=== PATIENT | female | born 1960 | race Caucasian/White ===

== ENCOUNTER → 2017-12-17 | Outpatient (CLI) | payer OTHER | END | disposition home or self-care (01) | LOC: CFH 08:15 | DX: N63.11 Unspecified lump in the right breast, upper outer quadrant (principal); Z80.3 Family history of malignant neoplasm of breast | CPT/HCPCS: 77066 ==

== ENCOUNTER → 2017-12-22 | Outpatient (CLI) | payer OTHER ==
[~2017-12-22] MED LIST: LIDOCAINE 1%-EPI 1:100K, 20ML ONE; SODIUM BICARBONATE 4.0%, 5ML ONE
== END | disposition home or self-care (01) ==
LOC: CFH 09:27
DX: N63.11 Unspecified lump in the right breast, upper outer quadrant (principal); N63.14 Unspecified lump in the right breast, lower inner quadrant
CPT/HCPCS: 19083; 77065; 88305; J3490

== ENCOUNTER → 2018-01-27 | Outpatient (CLI) | payer OTHER ==
[~2018-01-27] MED LIST changes: +CHOL10002 PO; -LIDOCAINE 1%-EPI 1:100K, 20ML ONE; +LOSA50TA6 PO; -SODIUM BICARBONATE 4.0%, 5ML ONE; +TYLENOL PM PO
== END | disposition home or self-care (01) ==
LOC: STAR 13:50
PROVIDERS: ATTEND Surgery
DX: Z01.812 Encounter for preprocedural laboratory examination (principal); C50.411 Malignant neoplasm of upper-outer quadrant of right female breast
CPT/HCPCS: 93005

== ENCOUNTER 2018-02-01 12:15 | Day surgery (SDC) | payer OTHER ==
[~2018-02-01] VITALS: Ht 167.6 cm; Wt 83.2 kg
[2018-02-01] MEDS ORDERED: LACTATED RINGERS 1,000 ML IV SCH ×2 (12:45→20:27)
[2018-02-01] MEDS ORDERED: SCOPOLAMINE PATCH, 1.5MG PATCH.TD72 TD ONE (13:00)
[2018-02-01] MEDS ORDERED: ONDANSETRON ODT 8 MG PO ONE (13:00)
[2018-02-01] MEDS ORDERED: ACETAMINOPHEN 500 MG TABLET PO ONE (13:00)
[2018-02-01] MEDS ORDERED: GABAPENTIN 300 MG CAPSULE PO ONE (13:00)
[2018-02-01 13:37] VITALS: BP 155/88
[2018-02-01] MEDS ORDERED: BUPIVACAINE/PF-EPI 0.5% 1:200K ONE (14:12)
[2018-02-01] MEDS ORDERED: GENTAMICIN 80 MG/2 ML ONE (14:12)
[2018-02-01] MEDS ORDERED: ISOSULFAN BLUE 10 MG/ML, 5ML IV ONE (14:12)
[2018-02-01] MEDS ORDERED: CEFAZOLIN 1,000 MG ONE ×3 (14:12→15:44)
[2018-02-01] MEDS ORDERED: BACITRACIN 50,000 UNIT ONE (14:13)
[2018-02-01] MEDS ORDERED: PROMETHAZINE 25 MG/ML, 1ML IV PRN (15:00)
[2018-02-01] MEDS ORDERED: OXYcodone 5 MG/5 ML ORAL.SOL UDC PO PRN (15:00)
[2018-02-01] MEDS ORDERED: FENTANYL PF 100 MCG/2ML IV PRN (15:00)
[2018-02-01] MEDS ORDERED: ONDANSETRON ODT 8 MG PO PRN (15:00)
[2018-02-01] MEDS ORDERED: PROMETHAZINE 25 MG SUPP PR PRN (15:00)
[2018-02-01] MEDS ORDERED: ONDANSETRON 2MG/ML, 2ML IV PRN (15:00)
[2018-02-01] MEDS ORDERED: LABETALOL 5MG/ML, 20ML IV PRN (15:00)
[2018-02-01] MEDS ORDERED: MORPHINE SULFATE 4 MG/ML, 1ML IVPush PRN (15:00)
[2018-02-01] MEDS ORDERED: HYDROmorphone 1 MG/ML, 1ML IV PRN (15:00)
[2018-02-01] MEDS ORDERED: MEPERIDINE/PF 25MG/0.5ML IVPush PRN (15:00)
[2018-02-01] MEDS ORDERED: PROMETHAZINE 12.5 MG SUPP PR PRN (15:00)
[2018-02-01] MEDS ORDERED: hydrALAzine 20 MG/ML, 1ML IV PRN (15:00)
[2018-02-01] MEDS ORDERED: MIDAZOLAM 1 MG/ML, 2ML ONE (15:43)
[2018-02-01] MEDS ORDERED: FENTANYL PF 250 MCG/5ML ONE (15:43)
[2018-02-01] MEDS ORDERED: WATER-INJECTION,STERILE 10 ML IV ONE (15:44)
[2018-02-01] MEDS ORDERED: NEOSTIGMINE 1 MG/ML, 10ML ONE (15:46)
[2018-02-01] MEDS ORDERED: GLYCOPYRROLATE 0.4 MG/2 ML, 2ML ONE (15:46)
[2018-02-01] MEDS ORDERED: PROPOFOL 10 MG/ML, 20ML ONE (15:46)
[2018-02-01] MEDS ORDERED: ROCURONIUM 10 MG/ML,10ML ONE (16:17)
[2018-02-01] MEDS ORDERED: DEXAMETHASONE 4 MG/ML, 1ML ONE ×3 (16:33)
[2018-02-01] MEDS ORDERED: OXYcodone 5 MG/5 ML ORAL.SOL UDC ONE (18:23)
[2018-02-01] MEDS ORDERED: morphine SULFATE 10 MG/ML, 1ML IVPush PRN (20:30)
[2018-02-01] MEDS ORDERED: ONDANSETRON 2MG/ML, 2ML IVPush PRN (20:30)
== END 2018-02-01 21:05 | disposition home or self-care (01) ==
LOC: OUT 12:15 → 4NOR 19:37 → OUT 20:27
PROVIDERS: ATTEND Surgery
DX: C50.911 Malignant neoplasm of unspecified site of right female breast (principal); R59.1 Generalized enlarged lymph nodes; I10 Essential (primary) hypertension; Z72.89 Other problems related to lifestyle; Z91.040 Latex allergy status
CPT/HCPCS: 19301; 38525; 38792; 88307; 88333; A9541; C1729; J0690; J1100; J2250; J2704; J2710; J3010; J7120; Q0162; 88329; 88341; 88342; G0461; J1580

== ENCOUNTER 2018-03-17 11:05 | Day surgery (SDC) | payer OTHER ==
[~2018-03-17] VITALS: Ht 167.6 cm; Wt 83.6 kg
[~2018-03-17 11:05] MED LIST changes: +BUPIVACAINE/PF 0.5% ONE; +ISOSULFAN BLUE 10 MG/ML, 5ML IV ONE
[2018-03-17] MEDS ORDERED: LACTATED RINGERS 1,000 ML IV SCH (11:28)
[2018-03-17] MEDS ORDERED: GABAPENTIN 300 MG CAPSULE PO ONE (11:30)
[2018-03-17] MEDS ORDERED: ACETAMINOPHEN 500 MG TABLET PO ONE (11:30)
[2018-03-17] MEDS ORDERED: ONDANSETRON ODT 8 MG PO ONE (11:30)
[2018-03-17] MEDS ORDERED: SCOPOLAMINE PATCH, 1.5MG PATCH.TD72 TD ONE (11:30)
[2018-03-17 11:44] VITALS: BP 139/86
[2018-03-17] MEDS ORDERED: ACET650S21 PO (11:51)
[2018-03-17] MEDS ORDERED: PLEASE ENTER HEIGHT AND WEIGHT MC SCH (12:00)
[2018-03-17] MEDS ORDERED: BACITRACIN 50,000 UNIT ONE (14:15)
[2018-03-17] MEDS ORDERED: GENTAMICIN 80 MG/2 ML ONE (14:15)
[2018-03-17] MEDS ORDERED: CEFAZOLIN 1,000 MG ONE ×2 (14:15→14:17)
[2018-03-17] MEDS ORDERED: ONDANSETRON 2MG/ML, 2ML ONE (14:17)
[2018-03-17] MEDS ORDERED: DEXAMETHASONE 4 MG/ML, 1ML ONE (14:17)
[2018-03-17] MEDS ORDERED: PROPOFOL 10 MG/ML, 20ML ONE (14:17)
[2018-03-17] MEDS ORDERED: PHENYLEPHRINE 10 MG/ML ONE (14:17)
[2018-03-17] MEDS ORDERED: METOCLOPRAMIDE 5 MG/ML, 2ML ONE (14:17)
[2018-03-17] MEDS ORDERED: EPHEDRINE 50 MG/ML, 1ML ONE (14:17)
[2018-03-17] MEDS ORDERED: FENTANYL PF 100 MCG/2ML ONE ×2 (14:20→16:21)
[2018-03-17] MEDS ORDERED: MIDAZOLAM 1 MG/ML, 2ML ONE (14:20)
[2018-03-17] MEDS ORDERED: BUPIVACAINE/PF-EPI 0.5% 1:200K INFIL ONE (14:50)
[2018-03-17] MEDS ORDERED: MEPERIDINE/PF 100 MG/ML ONE (15:11)
[2018-03-17] MEDS ORDERED: OXYcodone 5 MG/5 ML ORAL.SOL UDC ONE ×2 (16:22→16:45)
[2018-03-17] MEDS ORDERED: FENTANYL PF 100 MCG/2ML IV PRN (16:30)
[2018-03-17] MEDS ORDERED: HYDROmorphone 1 MG/ML, 1ML IV PRN (16:30)
[2018-03-17] MEDS ORDERED: LABETALOL 5MG/ML, 20ML IV PRN (16:30)
[2018-03-17] MEDS ORDERED: MEPERIDINE/PF 25MG/0.5ML IVPush PRN (16:30)
[2018-03-17] MEDS ORDERED: MIDAZOLAM 1 MG/ML, 2ML IV PRN (16:30)
[2018-03-17] MEDS ORDERED: ONDANSETRON 2MG/ML, 2ML IVPush PRN (16:30)
[2018-03-17] MEDS ORDERED: OXYcodone 5 MG/5 ML ORAL.SOL UDC PO PRN (16:30)
== END 2018-03-17 18:42 | disposition home or self-care (01) ==
LOC: OUT 11:05
PROVIDERS: ATTEND Surgery
DX: C50.911 Malignant neoplasm of unspecified site of right female breast (principal); Z98.890 Other specified postprocedural states; Z79.899 Other long term (current) drug therapy; Z72.89 Other problems related to lifestyle; I10 Essential (primary) hypertension; Z91.040 Latex allergy status
CPT/HCPCS: 19303; 19357; 88307; C1729; C1762; J0690; J1100; J1580; J2175; J2250; J2370; J2405; J2704; J2765; J3490; J7120; Q0162; J3010

== ENCOUNTER 2018-05-05 07:05 | Day surgery (SDC) | payer OTHER ==
[~2018-05-05] VITALS: Ht 167.6 cm; Wt 85.8 kg
[~2018-05-05 07:05] MED LIST changes: +ACET650S21 PO; -BUPIVACAINE/PF 0.5% ONE; -ISOSULFAN BLUE 10 MG/ML, 5ML IV ONE; -LOSA50TA6 PO; +LOSA50TA7 PO
[2018-05-05] MEDS ORDERED: LACTATED RINGERS 1,000 ML IV SCH (07:29)
[2018-05-05] MEDS ORDERED: GABAPENTIN 300 MG CAPSULE PO ONE (07:30)
[2018-05-05] MEDS ORDERED: ACETAMINOPHEN 500 MG TABLET PO ONE (07:30)
[2018-05-05] MEDS ORDERED: OxyconTIN ER 10 MG TAB.ER PO ONE (07:30)
[2018-05-05 07:52] VITALS: BP 150/93
[2018-05-05 08:11] LABS: HCG UR SG 1.018 (1.003-1.030); MICROSCOPIC NOT IND
[2018-05-05 08:13] LABS: CULTURE INDICATED? NO
[2018-05-05] MEDS ORDERED: ROCURONIUM 10MG/ML,5ML ONE (08:19)
[2018-05-05] MEDS ORDERED: LIDOCAINE-MPF 2% ,5ML ONE (08:19)
[2018-05-05] MEDS ORDERED: DEXAMETHASONE 4 MG/ML, 1ML ONE (08:19)
[2018-05-05] MEDS ORDERED: PROPOFOL 10 MG/ML, 20ML ONE (08:19)
[2018-05-05] MEDS ORDERED: MIDAZOLAM 1 MG/ML, 2ML ONE (08:19)
[2018-05-05] MEDS ORDERED: GLYCOPYRROLATE 0.2MG/1ML, 5ML ONE (08:19)
[2018-05-05] MEDS ORDERED: FENTANYL PF 250 MCG/5ML ONE (08:19)
[2018-05-05] MEDS ORDERED: FLUORESCEIN SODIUM 500 MG/5 ML ONE (08:35)
[2018-05-05] MEDS ORDERED: BUPIVACAINE/PF-EPI 0.5% 1:200K ONE (08:35)
[2018-05-05] MEDS ORDERED: DIPHENHYDRAMINE 50 MG/ML, 1ML IVPush PRN (09:00)
[2018-05-05] MEDS ORDERED: MIDAZOLAM 1 MG/ML, 2ML IV PRN (09:00)
[2018-05-05] MEDS ORDERED: SCOPOLAMINE PATCH, 1.5MG PATCH.TD72 TD ONE ×2 (09:00→09:03)
[2018-05-05] MEDS ORDERED: ALBUTEROL SULFATE 2.5 MG/3 ML NPPB PRN (09:00)
[2018-05-05] MEDS ORDERED: METOCLOPRAMIDE 5 MG/ML, 2ML IV PRN (09:00)
[2018-05-05] MEDS ORDERED: KETOROLAC 30 MG/1 ML IV PRN (09:00)
[2018-05-05] MEDS ORDERED: MEPERIDINE/PF 25MG/0.5ML IVPush PRN (09:00)
[2018-05-05] MEDS ORDERED: EPHEDRINE 50 MG/ML, 1ML IVPush PRN (09:00)
[2018-05-05] MEDS ORDERED: ONDANSETRON ODT 8 MG PO PRN (09:00)
[2018-05-05] MEDS ORDERED: LABETALOL 5MG/ML, 20ML IV PRN (09:00)
[2018-05-05] MEDS ORDERED: FENTANYL PF 100 MCG/2ML IV PRN (09:00)
[2018-05-05] MEDS ORDERED: HYDROmorphone 1 MG/ML, 1ML IV PRN (09:00)
[2018-05-05] MEDS ORDERED: DEXAMETHASONE 4 MG/ML, 1ML IV PRN (09:00)
[2018-05-05] MEDS ORDERED: HYDROcodone/APAP 7.5-325MG/15ML UDC PO PRN (09:00)
[2018-05-05] MEDS ORDERED: ESTROGENS CONJUGATED VAG CRM 0.625MG/1G, 30GM ONE (10:39)
[2018-05-05] MEDS ORDERED: IBUPROFEN 600 MG TABLET ONE (12:43)
[2018-05-05] MEDS ORDERED: HYDROcodone/APAP 5/325 TABLET PO PRN (13:00)
[2018-05-05] MEDS ORDERED: HYDROmorphone 2 MG/ML, 1ML IVPush PRN (13:00)
[2018-05-05] MEDS ORDERED: IBUPROFEN 600 MG TABLET PO SCH (13:00)
== END 2018-05-05 17:55 | disposition home or self-care (01) ==
LOC: OUT 07:05
PROVIDERS: ATTEND Obstetrics & Gynecology
DX: N93.8 Other specified abnormal uterine and vaginal bleeding (principal); N75.0 Cyst of Bartholin's gland; N85.2 Hypertrophy of uterus; I10 Essential (primary) hypertension; G43.909 Migraine, unspecified, not intractable, without status migrainosus; Z85.3 Personal history of malignant neoplasm of breast; Z98.890 Other specified postprocedural states; Z90.11 Acquired absence of right breast and nipple
CPT/HCPCS: 36415; 56740; 58552; 81003; 81025; 86850; 86900; 88304; 88307; J1100; J2250; J2704; J3010; J3490; J7120

== ENCOUNTER 2018-09-29 05:17 | Day surgery (SDC) | payer OTHER ==
[~2018-09-29] VITALS: Ht 167.6 cm; Wt 84.0 kg
[~2018-09-29 05:17] MED LIST changes: +ANAS1TAB PO; +CALC-534 PO; +CHOL200024 PO; +LOSA50TA14 PO; -LOSA50TA7 PO; +PARO37.52 PO
[2018-09-29] MEDS ORDERED: FENTANYL PF 250 MCG/5ML ONE (05:55)
[2018-09-29] MEDS ORDERED: MIDAZOLAM 1 MG/ML, 2ML ONE (05:55)
[2018-09-29] MEDS ORDERED: LACTATED RINGERS 1,000 ML IV SCH (05:59)
[2018-09-29] MEDS ORDERED: SCOPOLAMINE PATCH, 1.5MG PATCH.TD72 TD ONE (06:00)
[2018-09-29] MEDS ORDERED: GABAPENTIN 300 MG CAPSULE PO ONE (06:00)
[2018-09-29] MEDS ORDERED: ACETAMINOPHEN 500 MG TABLET PO ONE (06:00)
[2018-09-29 06:08] VITALS: BP 154/97
[2018-09-29] MEDS ORDERED: EPINEPHRINE 1 MG/ML, 1ML ONE (06:18)
[2018-09-29] MEDS ORDERED: SODIUM BICARBONATE 1 MEQ/ML, 50ML VIAL ONE (06:19)
[2018-09-29] MEDS ORDERED: LIDOCAINE-MPF 2% ,5ML ONE (06:19)
[2018-09-29] MEDS ORDERED: CEFAZOLIN 1,000 MG ONE ×2 (06:19→07:42)
[2018-09-29] MEDS ORDERED: BUPIVACAINE/PF-EPI 0.5% 1:200K ONE (06:19)
[2018-09-29] MEDS ORDERED: GENTAMICIN 80 MG/2 ML ONE (06:19)
[2018-09-29] MEDS ORDERED: BACITRACIN 50,000 UNIT ONE (06:20)
[2018-09-29] MEDS ORDERED: ONDANSETRON 2MG/ML, 2ML IV PRN (06:30)
[2018-09-29] MEDS ORDERED: FENTANYL PF 100 MCG/2ML IV PRN (06:30)
[2018-09-29] MEDS ORDERED: ONDANSETRON ODT 8 MG PO PRN (06:30)
[2018-09-29] MEDS ORDERED: MORPHINE SULFATE 4 MG/ML, 1ML IVPush PRN (06:30)
[2018-09-29] MEDS ORDERED: PROMETHAZINE 25 MG SUPP PR PRN (06:30)
[2018-09-29] MEDS ORDERED: HYDROmorphone 2 MG/ML, 1ML IVPush PRN (06:30)
[2018-09-29] MEDS ORDERED: PROMETHAZINE 25 MG/ML, 1ML IM PRN ×2 (06:30)
[2018-09-29] MEDS ORDERED: hydrALAzine 20 MG/ML, 1ML IV PRN (06:30)
[2018-09-29] MEDS ORDERED: OXYcodone 5 MG/5 ML ORAL.SOL UDC PO PRN (06:30)
[2018-09-29] MEDS ORDERED: PROMETHAZINE 12.5 MG SUPP PR PRN (06:30)
[2018-09-29] MEDS ORDERED: LABETALOL 5MG/ML, 20ML IV PRN (06:30)
[2018-09-29] MEDS ORDERED: PROMETHAZINE 25 MG/ML, 1ML IV PRN (06:30)
[2018-09-29] MEDS ORDERED: GLYCOPYRROLATE 0.2MG/1ML, 5ML ONE (07:42)
[2018-09-29] MEDS ORDERED: PROPOFOL 10 MG/ML, 20ML ONE (07:42)
[2018-09-29] MEDS ORDERED: NEOSTIGMINE 1 MG/ML, 10ML ONE (07:42)
[2018-09-29] MEDS ORDERED: ROCURONIUM 10MG/ML,5ML ONE (07:42)
[2018-09-29] MEDS ORDERED: ONDANSETRON 2MG/ML, 2ML ONE (07:42)
[2018-09-29] MEDS ORDERED: OXYcodone 5 MG/5 ML ORAL.SOL UDC ONE ×2 (08:24→08:52)
[2018-09-29] MEDS ORDERED: MEPERIDINE/PF 25MG/ML,1ML ONE (08:24)
[2018-09-29] MEDS: MEPERIDINE/PF 25MG/0.5ML IVPush PRN ×2 (08:26→08:54)
[2018-09-29] MEDS ORDERED: PHENYLEPHRINE 10 MG/ML ONE (10:28)
[2018-09-29] MEDS ORDERED: DEXAMETHASONE 4 MG/ML, 1ML ONE (10:29)
== END 2018-09-29 11:45 | disposition home or self-care (01) ==
LOC: OUT 05:17
PROVIDERS: ATTEND Plastic Surgery
DX: N65.1 Disproportion of reconstructed breast (principal); I10 Essential (primary) hypertension; Z85.3 Personal history of malignant neoplasm of breast; Z98.890 Other specified postprocedural states; Z72.89 Other problems related to lifestyle; Z91.040 Latex allergy status; Z79.899 Other long term (current) drug therapy
CPT/HCPCS: 11970; 19366; 20926; C1789; J0171; J0690; J1100; J1580; J2175; J2250; J2370; J2405; J2704; J2710; J3010; J3490; J7120

== ENCOUNTER → 2019-01-16 | Outpatient (CLI) | payer OTHER | END | disposition home or self-care (01) | LOC: CFH 10:36 | PROVIDERS: ATTEND Internal Medicine Hematology & Oncology | DX: R92.2 Inconclusive mammogram (principal); Z85.3 Personal history of malignant neoplasm of breast; Z90.11 Acquired absence of right breast and nipple | CPT/HCPCS: 76641 ==

== ENCOUNTER → 2019-05-12 | Outpatient (CLI) | payer OTHER ==
[2019-05-12 10:17] LABS: BASOPHILS # (AUTO) 0.06 x10^3/uL (0-0.1); BASOPHILS % (AUTO) 1 % (0-1); EOSINOPHILS # (AUTO) 0.21 x10^3/uL (0-0.4); EOSINOPHILS % (AUTO) 3 % (1-7); LYMPHOCYTES # (AUTO) 2.05 x10^3/uL (1-3.4); LYMPHOCYTES % (AUTO) 33 % (22-44); MD NO; MEAN CORPUSCULAR HEMOGLOBIN 30.2 pg (27.0-34.8); MEAN CORPUSCULAR HGB CONC 33.3 g/dL (32.4-35.8); MEAN CORPUSCULAR VOLUME 90.9 fL (80-100); MEAN PLATELET VOLUME 8.5 fL (7.4-10.4); MONOCYTES # (AUTO) 0.42 x10^3/uL (0.2-0.8); MONOCYTES % (AUTO) 7 % (2-9); NEUTROPHILS # (AUTO) 3.42 x10^3/uL (1.8-6.8); NEUTROPHILS % (AUTO) 56 % (42-75); PLATELET COUNT 318 x10^3/uL (130-400); RED BLOOD COUNT 4.84 x10^6/uL (3.82-5.3); RED CELL DISTRIBUTION WIDTH 14.6 % (9.6-15.2)
[2019-05-12 10:30] LABS: ALANINE AMINOTRANSFERASE 108 U/L (12-78); ALBUMIN 3.8 g/dL (3.4-5.0); ANION GAP 5 mmol/L (5-15); CALCIUM 8.9 mg/dL (8.5-10.1); CHLORIDE 107 mmol/L (98-107); CREATININE 0.97 mg/dL (0.55-1.02)
[2019-05-12 10:40] LABS: ALKALINE PHOSPHATASE 116 U/L (45-117); BILIRUBIN,TOTAL 0.5 mg/dL (0.2-1.0); FREE T4 (FREE THYROXINE) 0.99 ng/dL (0.76-1.46); TOTAL PROTEIN 7.5 g/dL (6.4-8.2)
[2019-05-12 12:41] LABS: HEMOGLOBIN A1C 5.3 % (4.2-6.3)
== END | disposition home or self-care (01) ==
LOC: LAB 10:03
DX: Z00.01 Encounter for general adult medical examination with abnormal findings (principal); K76.0 Fatty (change of) liver, not elsewhere classified; Z85.3 Personal history of malignant neoplasm of breast
CPT/HCPCS: 36415; 80053; 80061; 82306; 83036; 83525; 83704; 84439; 84443; 84481; 85025

== ENCOUNTER → 2020-01-29 | Outpatient (CLI) | payer OTHER | END | disposition home or self-care (01) | LOC: CFH 10:29 | PROVIDERS: ATTEND Internal Medicine Hematology & Oncology | DX: Z12.31 Encounter for screening mammogram for malignant neoplasm of breast (principal); C50.411 Malignant neoplasm of upper-outer quadrant of right female breast; Z85.3 Personal history of malignant neoplasm of breast | CPT/HCPCS: 76641; 77067 ==

== ENCOUNTER → 2021-02-21 | Outpatient (CLI) | payer OTHER | END | disposition home or self-care (01) | LOC: CFH 15:16 | PROVIDERS: ATTEND Internal Medicine Hematology & Oncology | DX: Z12.31 Encounter for screening mammogram for malignant neoplasm of breast (principal); C50.411 Malignant neoplasm of upper-outer quadrant of right female breast | CPT/HCPCS: 77063; 77067 ==